=== PATIENT | male | born 2000 | race Caucasian/White ===

== ENCOUNTER → 2019-08-17 09:01 | Outpatient (CLI) | payer BC, SELFPAY ==
--- NOTE | 2019-08-17 09:30 | RAD_ITS ---
PROCEDURE: Steroid injection - RIGHT HIP REASON FOR EXAM: Male, 19 years old. Right hip pain FLUOROSCOPY TIME (if supplied): (0:10) seconds STERILE BARRIER TECHNIQUE: The following sterile barrier precautions were used during the procedure: hand hygiene; use of 2% chlorhexidine aseptic; use of a cap, mask, sterile gown, sterile gloves, sterile full body drape, and a large sterile sheet. PROCEDURE/TECHNIQUE: The risks, benefits, and alternatives to the procedure were explained to patient, and the patient agreed to the procedure and signed a consent form for the procedure. A timeout was performed to confirm the patient''s identity, the type of procedure, to be performed and the site of entry. Injection Information: Mixture containing 1cc betamethasone and 3cc of 1 percent. Mixture containing 0.2 mL of Omniscan, 10 mL of Omnipaque 300 and 10 mL of normal saline. Number of images obtained: 2 TECHNIQUE: Under fluoroscopic guidance using sterile technique and after infiltration of the skin and subcutaneous soft tissues with 10 mL of lidocaine 1% a 22-gauge needle is introduced in the hip joint. 3 mL of air were injected in the hip joint to ensure needle position . The above mentioned mixture was injected in the hip joint. FINDINGS: The joint capsule is normal in size. There is no abnormal opacification of the subdeltoid bursa to suggest a full-thickness rotator cuff tear. There is no evidence of intra-articular loose bodies. RAD/Arthrogram Hip IMPRESSION: Successful intra-articular steroid injection under fluoroscopic guidance. Electronically Signed: Sebastian Das, at 15:41 EDT Tel , Service support ,
--- NOTE | 2019-08-17 10:03 | MRI_ITS ---
STUDY: MRI RIGHT HIP ARTHROGRAM REASON FOR EXAM: Male, 19 years old. rt hip arthrogram pain -- lifting injury, pain anterior hip x 2 months TECHNIQUE: Standardized arthrographic pulse sequences were obtained in all 3 orthogonal planes. Contrast evaluation with 15 mL dilute arthrogram solution. COMPARISON: None. FINDINGS: Adequate capsular distention secondary to intra-articular contrast demonstration. Normal hip joint without articular joint space narrowing. Normal acetabulum. Normal labrum. Normal femoral head. Normal femoral neck and intratrochanteric region. Normal gluteus minimus, medius and iliopsoas tendons and distal insertions. No trochanteric, iliopsoas or iliopectineal bursitis. Normal superior and inferior pubic rami. Normal pubic symphysis. Normal ischial tuberosity. Normal origin of the hamstring tendons. Normal visualized iliac wing, sacroiliac joint, and sacral ala. Normal visualized soft tissue structures of the pelvis. MRI/Lower Ext/Jt Only/W Contrast IMPRESSION: Normal right hip arthrogram Electronically Signed: Jourdan Rapp DO at 12:12 EDT Tel , Service support ,
== END ==
PROVIDERS: Referring Provider Orthopaedic Surgery; Visit Provider Orthopaedic Surgery
DX: M25.551 Pain in right hip (principal)
CPT/HCPCS: 20610; 27093; 73525; 73722; 77002; A9575; Q9967

== ENCOUNTER 2019-10-26 12:30 | Outpatient (RCR) | payer BC, SELFPAY ==
--- NOTE | 2019-09-02 11:18 | HP.PTEVAL_ITS ---
Patient's Visit Information OSMANY UMANZOR is a 19 year old M referred to Physical Therapy by Dr. Syed Mireles MD with a diagnosis of R hip pain. Date of Evaluation: 09/02/19 Physical Therapist: Jourdan Chaidez DPT, OCS, CSCS - Visit Plan Frequency: 3x /Week Duration: 4-6 Weeks Plan: 3x/week for 3-6 weeks for... 1. CFM to hip flexors with quad and hip flexor rollout/inhibition. Stretch quad and hip flexors R and ITB and HS. Strengthen R hip stabs and progress function to squat and jog as pain allows. Pt is to avoid aggravating activities. US nonthermal to R hip flexors if progress not made. - Subjective R anterior hip pain since May. saw orthopedic and had MRI and thinks it is muscular. Not sure why it started, hunch is from lifting in April or May. Still hurts to squat and deadlift. Running is fine 99% of time but does throb every now and then. Sitting is OK. Sleep is good. Was given antiinflammatory and it helps a little. Pain has been low level. Avoids lifting as he does not want it to get worse. Enjoys lifting. 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 Not empoyed. 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 - Pain R anterior hip pain Pain Intensity (Out of 10): 0 Pain Intensity Range: 0, 1 Comment: only lingers for 10 minutes when provoked - Objective R hip flexor tender to touch moderately vs L and more so with SLR. Other hip tissue not tender. Walks and steps without pain or antalgia today. 1/2 squat without pain but past 60 degree knee flexion squat gives anterior hip pain that lingers on R side. Trasnfers I. - GEORGINA and FADDIR. B hips very tight in hip flexors, quads B, HS with -30 90/90 test B, ITB min tight B. strength hips abd 4- and ext 4- without pain, felxion painful on R and 4 adn 4 on L. adduction not painful and 5/5, rotations not painful and 4- B. Knee ext adn flexiona dn ankle DF 5 without pain. relfexes 2/3 in patella and achilles. Sensation IN LE WNL to gross light touch. LB aROM WFL although posture is hunched and flexed in lumbar area, no pain. - Goals Goal 1:: squat to 90 degrees without pain R hip Goal Time Frame: 4-6 Weeks Goal 2:: Run one mile at home without pain. Goal Time Frame: 4-6 Weeks Goal 3:: Pt feel 95% better in R hip Goal Time Frame: 4-6 Weeks Goal 4:: LEFS score 80/80 Goal Time Frame: 4-6 Weeks Goal 5:: I approp HEP to minimize future problems. Goal Time Frame: 4-6 Weeks - Rehabilitation Potential Physical Therapy Diagnosis: R hip fexor tendonitis with painful mobility. Rehabilitation Potential: Fair - Anticipated Interventions Patient/Client Instruction: Educate patient on: Condition, Plan of Care For the Purpose of:: To decrease pain, To improve muscle performance and motor function, To increase tolerance to activity/condition/position, To improve ability of physical actions for home/community/work/leisure Therapeutic Exercise to Include: Strength training, Flexibilty training, Gait and locomotor training, Passive ROM, Active ROM For the Purpose of:: To decrease pain, To improve nutrient delivery to tissue, To increase oxygenation perfusion, To increase tolerance to activity/condition/position Manual Therapy Techniques to Include: Soft tissue mobilization Comment: cfm For the Purpose of:: To decrease pain, To improve nutrient delivery to tissue Ultrasound (thermal/non thermal): Yes - nonthermal R hi flexor. For the Purpose of:: To decrease pain, To decrease swelling/inflammation Thank you for the opportunity to evaluate your patient. For Medicare and Medicare HMO plans, please review the plan of care and approve it. It will need to be FAXED BACK to us at [phone] for Medicare purposes. For Medicare only, by signing this I certify the plan of care. Please let me know if there are questions or concerns regarding this plan of care. Physician Signature: Date:
--- NOTE | 2019-09-21 09:47 | HP.PTREVAL_ITS ---
Dr. Syed Mireles MD, It has been my pleasure to treat OSMANY UMANZOR over the last 9 visits for R hip pain. Please see the progress note below for an update on the physical therapy plan of care! Subjective: Getting deeper on squats especiallya fter the first set. Still notices some miniscule tightness in anterior hip at times in deep squats. Has not started running. Ptthinks 2 weeks to continue strengthening of hip. To doctor in afew weeks. Has introduced bands for hips as HEP. Also stretching daily. Objective/Function: Still very tight posterior hips limiting hip flexion. Squat looks better, past 90 degrees with only slight discomofort. Progressing nicely but feels needs two more weeks. Plan Plan: Pt to stretch into hip flexion daily. Please continue hip stabs and stretching per previous visits and get into squat and deadlift technique. No f/u with therapist necessary unless patient feels still things to work on after next 5 visits. Goals Goal 1:: squat to 90 degrees without pain R hip Goal Time Frame: 4-6 Weeks Goal Progress: Progressing Goal 2:: Run one mile at home without pain. Goal Time Frame: 4-6 Weeks Goal Progress: not yet Goal 3:: Pt feel 95% better in R hip Goal Time Frame: 4-6 Weeks Goal 4:: LEFS score 80/80 Goal Time Frame: 4-6 Weeks Goal Progress: Progressing Goal 5:: I approp HEP to minimize future problems. Goal Time Frame: 4-6 Weeks Goal Progress: Progressing Anticipated Interventions Patient/Client Instruction: Educate patient on: Condition, Plan of Care For the Purpose of:: To decrease pain, To improve muscle performance and motor function, To increase tolerance to activity/condition/position, To improve ability of physical actions for home/community/work/leisure Therapeutic Exercise to Include: Strength training, Flexibilty training, Gait and locomotor training, Passive ROM, Active ROM For the Purpose of:: To decrease pain, To improve nutrient delivery to tissue, To increase oxygenation perfusion, To increase tolerance to activity/condition/p osition Manual Therapy Techniques to Include: Soft tissue mobilization Comment: cfm For the Purpose of:: To decrease pain, To improve nutrient delivery to tissue Ultrasound (thermal/non thermal): Yes - nonthermal R hi flexor. For the Purpose of:: To decrease pain, To decrease swelling/inflammation Please do not hesitate to contact me at [phone] by phone or if you have questions or concerns regarding this new plan of care! Sincerely, Jourdan Chaidez, DPT, OCS, CSCS
--- NOTE | 2019-12-22 09:23 | HP.PTDCSUM ---
It has been my pleasure to treat OSMANY UMANZOR referred by Dr. Syed Mireles MD, with the diagnosis of R hip pain for a total of 15 visit(s). Discharge Date: 10/26/19 Please see the following information for a summary of their discharge status. Subjective: Not much pain lately. Sometimes after hard leg wrokout running up hill. Hurts to squat slightly. Better than 6 weeks. Activities pretty normal. No doctor f/u R anterior hip pain Pain Intensity (Out of 10): 0 % Improvement: 90 Objective/Function: Still tight HS -25 90/90 and gluts, piriformis past 110 hip flexion B. Walks well. Steps normal. squat still hurts slightly and trasnsiently. Goal 1:: squat to 90 degrees without pain R hip Goal Progress: Goal Met, 100 hurts Goal 2:: Run one mile at home without pain. Goal Progress: Goal Met Goal 3:: Pt feel 95% better in R hip Goal Progress: Progressing Goal 4:: LEFS score 80/80 Goal Progress: Progressing Goal 5:: I approp HEP to minimize future problems. Goal Progress: Goal Met Plan: d/c If there are questions or concerns regarding this patient's physical therapy, please feel free to call me at [phone]. Thank you for the referral of this patient. Sincerely, Jourdan Chaidez, DPT, OCS, CSCS
== END 2019-10-26 19:00 | disposition home or self-care (01) ==
LOC: PT 12:30
PROVIDERS: Referring Provider Specialist; Visit Provider Specialist
DX: M25.551 Pain in right hip (principal)
CPT/HCPCS: 97110; 97140; 97161; 97164